=== PATIENT | female | born 1980 | race Caucasian/White ===

== ENCOUNTER 2018-11-22 13:44 | Emergency (ER) | payer BC ==
[2018-11-22 15:02] LABS: #Basophils 0.1 thou/uL (0.0-0.2); #Eosinphils 0.1 thou/uL (0.0-0.7); #Lymphocytes 1.7 thou/uL (1.20-3.40); #Monocytes 0.4 thou/uL (0.11-0.59); #Neutrophils 9.9 thou/uL (1.40-6.50); %Basophils 0.6 % (0.0-1.0); %Eosinophils 0.4 % (0.0-10.0); %Lymphocytes 14.1 % (21.0-51.0); %Monocytes 3.4 % (0.0-10.0); %Neutrophils 81.4 % (42.0-75.0); Hemoglobin 11.8 g/dL (12.0-16.0); Mean Corpuscular HGB CONC 32.1 g/dL (32.0-36.0); Mean Corpuscular Hemoglobin 28.1 pg (27.0-31.0); Mean Corpuscular Volume 87.6 fL (78.0-98.0); Mean Platelet Volume 7.2 fL (7.4-10.4); Platelet Count 238 thou/uL (130-400); RBC Distribution Width 12.6 % (11.5-14.5); White Blood Cell (WBC) Count 12.2 thou/uL (4.8-10.8)
--- NOTE | 2018-11-22 15:26 | CT ---
BRAIN CT WITHOUT IV CONTRAST: Date: 11/2218 HISTORY: Syncope after having had blood drawn, hitting chin. FINDINGS: There is a focal 0.8 x 2.3 cm CSF density circumscribed density in the left lateral basal cistern reg ion, evidence for an arachnoid cyst. No evidence for adjacent edema. No focal mass effect or midline shift. No acute hemorrhage. IMPRESSION: Incidental 0.8 x 2.3 cm diameter left basal cistern region arachnoid cyst. No mass or bleed, or other acute process. POS: RRE
[2018-11-22 15:30] LABS: ALT (SGPT) 11 U/L (8-55); AST (SGOT) 13 U/L (5-34); Albumin 3.7 g/dL (3.5-5.0); Alkaline Phosphatase 52 U/L (40-150); Anion Gap 12 mmol/L (10-20); BUN (Urea Nitrogen) 20 mg/dL (7.0-18.7); Bilirubin, Total 0.3 mg/dL (0.2-1.2); Calc. Creatinine Clearance 0 mL/min (70-130); Calcium 8.4 mg/dL (7.8-10.44); Carbon Dioxide 23 mmol/L (22-29); Chloride 105 mmol/L (98-107); Estimated GFR-MDRD 88; Glucose 110 mg/dL (70-105); Potassium 3.7 mmol/L (3.5-5.1); Protein, Total 5.7 g/dL (6.0-8.3); Sodium 136 mmol/L (136-145)
--- NOTE | 2018-11-22 16:27 | CT ---
CT maxillofacial noncontrast: DATE: 11/22/2018 HISTORY: 38-year-old female status post acute facial trauma from fall. FINDINGS: There is a midline superficial soft tissue defect at the chin which either reaches or almost reaches the superficial osseous cortical surface of the mentum of the mandible. There is no fracture of the mandible or any of the other facial bones. The orbits, paranasal sinuses, bilateral middle ear caviti es, and mastoid antra, are clear. No dislocation or subluxation at the TMJs. No facial soft tissue hematoma. IMPRESSION: 1. Soft tissue laceration superficial to the mandibular symphysis. 2. No fracture.
[2018-11-22] MEDS ORDERED: Lidocaine 2% 10 ML INJ ONE (17:02)
[2018-11-22] MEDS ORDERED: Lidocaine 1% w/Epinephrine 1:100K 20 ML VIAL ONE (17:03)
[2018-11-22 17:12] LABS: Bilirubin Negative (Negative); Blood, Urine Trace (Negative); Glucose, Urine (Dipstick) Negative (Negative); Leukocyte Negative (Negative); Nitrite Negative (Negative); Protein, Urine (Dipstick) Negative (Neg-Trace); Urobilinogen 0.2 mg/dL (Less than 2)
[2018-11-22 17:15] LABS: Clarity Clear (Clear)
[2018-11-22 17:19] LABS: RBC/HPF None Seen HPF (0-3); WBC/HPF None Seen HPF (0-3)
[2018-11-22 17:20] LABS: Bacteria/HPF None Seen HPF (None Seen); Squamous Epithelial 0-3 HPF (0-3)
[2018-11-22] MEDS ORDERED: Ketorolac Tromethamine 30 MG/ML VIAL ONE (17:54)
== END 2018-11-22 18:55 | disposition home or self-care (01) ==
LOC: ERS 13:44
DX: R55 Syncope and collapse (principal); S01.81XA Laceration without foreign body of other part of head, initial encounter; F41.9 Anxiety disorder, unspecified; F90.9 Attention-deficit hyperactivity disorder, unspecified type; Z79.899 Other long term (current) drug therapy; W22.8XXA Striking against or struck by other objects, initial encounter
CPT/HCPCS: 12011; 36415; 70450; 70486; 80053; 81003; 81015; 84484; 85025; 90471; 93005; 96361; 96374; J1885; J2001

== ENCOUNTER 2021-11-15 09:09 | Outpatient (CLI) | payer BC | END 2021-11-15 09:10 | disposition home or self-care (01) | LOC: SCSMRI 09:09 | PROVIDERS: ATTEND Family Medicine | DX: R20.2 Paresthesia of skin (principal); M50.322 Other cervical disc degeneration at C5-C6 level | CPT/HCPCS: 70551; 72141 ==